=== PATIENT | male | born 2000 | race Hispanic/Latino ===

== ENCOUNTER 2019-08-22 22:59 | Emergency (ER) | payer SELFPAY ==
[2019-08-22] MEDS ORDERED: Lidocaine 1% w/Epinephrine 1:100K 20 ML VIAL ONE (23:45)
[2019-08-23] MEDS ORDERED: Adacel (T-DAP) 0.5 ML SYRINGE ONE (00:06)
[2019-08-23] MEDS ORDERED: Bacitracin 1 PK ONE (00:08)
== END 2019-08-23 00:42 | disposition home or self-care (01) ==
LOC: ERS 22:59
DX: S81.812A Laceration without foreign body, left lower leg, initial encounter (principal); V87.8XXA Person injured in other specified noncollision transport accidents involving motor vehicle (traffic), initial encounter
CPT/HCPCS: 12002; 90471; 90715

== ENCOUNTER 2019-08-29 14:21 | Emergency (ER) | payer SELFPAY | END 2019-08-29 14:47 | disposition home or self-care (01) | LOC: ERS 14:21 | DX: S81.812D Laceration without foreign body, left lower leg, subsequent encounter (principal); V87.8XXD Person injured in other specified noncollision transport accidents involving motor vehicle (traffic), subsequent encounter | CPT/HCPCS: 99282 ==